=== PATIENT | male | born 1985 | race Caucasian/White ===

== ENCOUNTER 2017-10-15 18:06 | Emergency (ER) | payer SELFPAY ==
[~2017-10-15] VITALS: Ht 180.3 cm; Wt 68.0 kg
[~2017-10-15 18:06] MED LIST: BACT800T5 PO; CLIN150C14 PO; OXYC30TA PO; OXYC60TA8 PO
[2017-10-15 18:11] VITALS: BP 134/60; PULSE 101; RESP 16; TEMP 97.4; O2SAT 100
[2017-10-15] MEDS ORDERED: SOMA250T PO (18:40)
[2017-10-15] MEDS ORDERED: SYNT25TA PO (18:40)
--- NOTE | 2017-10-15 19:10 | PD ---
HPI Chief Complaint: Numbness/Tingling Time Seen by Provider: 18:49 Travel History International Travel<30 days: No Contact w/Intl Traveler<30days: No Traveled to known affect area: No History of Present Illness HPI The patient is a 32-year-old male who presents to the emergency department for left lower extremity numbness and weakness. The patient states his symptoms started 3 days prior to arrival. He complains of numbness of the left lower extremity states when he stands he feels "pins and needles". He does feel like his left lower extremity is weak upon standing but he is able to ambulate. He denies any trauma to the left lower extremity denies any known history of neuropathy or diabetes. He does have a family history of diabetes. He also notes a history of IVDA, last used IV methamphetamines one week prior to arrival. He denies any lower back pain, urinary incontinence, or pain of the left thigh. He denies any associated fever, chills, or sweats. Symptoms are mild to moderate without any known alleviating or exacerbating factors. 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) Reported Meds & Prescriptions Reported Meds & Active Scripts Active Reported Soma (Carisoprodol) 250 Mg Tab 250 Mg PO QID PRN Synthroid (Levothyroxine Sodium) 25 Mcg Tab 25 Mcg PO DAILY Review of Systems Except as stated in HPI: all other systems reviewed are Neg General / Constitutional: No: Fever Cardiovascular: No: Chest Pain or Discomfort Respiratory: No: Shortness of Breath Gastrointestinal: No: Nausea, Vomiting Genitourinary: No: Incontinence Musculoskeletal: Positive: Weakness, Pain Skin: No Rash Neurologic: Positive: Paresthesia, Sensory Disturbance Physical Exam Narrative GENERAL: Awake, alert, nontoxic-appearing 32-year-old male who appears his stated age and is in no acute respiratory distress. SKIN: Focused skin assessment warm/dry. HEAD: Atraumatic. Normocephalic. EYES: Pupils equal and round. No scleral icterus. No injection or drainage. ENT: No nasal bleeding or discharge. Mucous membranes pink and moist. NECK: Trachea midline. No JVD. CARDIOVASCULAR: Regular rate and rhythm. No murmur appreciated. RESPIRATORY: No accessory muscle use. Clear to auscultation. Breath sounds equal bilaterally. GASTROINTESTINAL: Abdomen soft, non-tender, nondistended. Back: No tenderness over the thoracic or lumbar vertebrae. No tenderness of the sacroiliac. No tenderness of the paravertebral muscles. MUSCULOSKELETAL: No obvious deformities. No clubbing. No cyanosis. No edema. Flexion of the hips is 5 out of 5. Extension of the right knee is 5 out of 5, the left is 4+/5. Plantar flexion on the left is 4+/5. Flexion left great toes 4+/5. Strength on the right at the knee, ankle, great toe is 5+/5. Positive dorsalis pedal pulses bilateral. NEUROLOGICAL: Awake and alert. No obvious cranial nerve deficits. Motor grossly within normal limits. Normal speech.Knee DTRs are 2+ and symmetric. Left ankle DTRs 1+, right is 2+. Sensation is diminished to soft touch over the posterior aspect of the left lower extremity over the calf as well as over the medial, lateral, dorsal aspect the left leg. PSYCHIATRIC: Appropriate mood and affect; insight and judgment normal. Data Data Last Documented VS Vital Signs Date Time Temp Pulse Resp B/P (MAP) Pulse Ox O2 Delivery O2 Flow Rate FiO2 10/15/17 20:20 68 119/60 (79) 10/15/17 18:11 97.4 16 100 Orders Orders Complete Blood Count With Diff (10/15/17 18:59) Basic Metabolic Panel (Bmp) (10/15/17 18:59) Westergren Sedimentation Rate (10/15/17 18:59) C-Reactive Protein (Crp) (10/15/17 18:59) Mri L Spine W&W/O Contrast (10/15/17 ) Gadodiamide Pf Inj (Omniscan Pf Inj) (10/15/17 20:55) Labs Laboratory Tests Test 10/15/17 19:23 White Blood Count 7.9 TH/MM3 Red Blood Count 4.40 MIL/MM3 Hemoglobin 13.0 GM/DL Hematocrit 39.5 % Mean Corpuscular Volume 89.9 FL Mean Corpuscular Hemoglobin 29.6 PG Mean Corpuscular Hemoglobin Concent 32.9 % Red Cell Distribution Width 12.4 % Platelet Count 212 TH/MM3 Mean Platelet Volume 8.9 FL Neutrophils (%) (Auto) 59.2 % Lymphocytes (%) (Auto) 22.1 % Monocytes (%) (Auto) 6.5 % Eosinophils (%) (Auto) 10.8 % Basophils (%) (Auto) 1.4 % Neutrophils # (Auto) 4.7 TH/MM3 Lymphocytes # (Auto) 1.7 TH/MM3 Monocytes # (Auto) 0.5 TH/MM3 Eosinophils # (Auto) 0.9 TH/MM3 Basophils # (Auto) 0.1 TH/MM3 CBC Comment DIFF FINAL Differential Comment Erythrocyte Sedimentation Rate 18 mm/hr Blood Urea Nitrogen 16 MG/DL Creatinine 0.71 MG/DL Random Glucose 80 MG/DL Calcium Level 8.8 MG/DL Sodium Level 144 MEQ/L Potassium Level 3.8 MEQ/L Chloride Level 107 MEQ/L Carbon Dioxide Level 30.8 MEQ/L Anion Gap 6 MEQ/L Estimat Glomerular Filtration Rate 130 ML/MIN [facility] Medical Decision Making Medical Screen Exam Complete: Yes Emergency Medical Condition: Yes Medical Record Reviewed: Yes Interpretation(s) MRI lumbar spine with and without contrast reveals a few rounded small nodular areas of enhancement in edema involving the left paraspinal musculature as detailed. This suggests areas of inflammation or infection. No abscess or fluid collection currently seen. Degenerative disc disease at L5-S1 without neural impingement or central canal narrowing. L5-S1 reveals a left paracentral disc protrusion observe with linear high T2 signal suggesting annular tear. This mildly narrowed the left lateral recess. Differential Diagnosis Differential diagnosis includes neuropathy, radiculopathy, epidural abscess, electrolyte abnormality, hyperkalemia, hypokalemia, hypercalcemia, hypocalcemia. Narrative Course IV was established, labs are drawn and sent, and the patient was placed on cardiac telemetry monitoring and continuous pulse oximetry monitoring. Electrolyte or sent to lab. MRI of the lumbar spine was ordered with and without contrast rule out epidural abscess with history of IVDA and left lower extremity weakness and numbness. MRI reveals a few small rounded nodular areas of enhancement in edema involving the left paraspinal musculature that suggest areas of inflammation or infection, no abscess or fluid collection currently seen. Degenerative disc disease at L5-S1 without neural impingement or central canal narrowing. A left paracentral disc protrusion observed with linear high T2 signal suggesting annular tear that mildly naris left lateral recess. The patient's white count was normal, he is afebrile, sedimentation rate is only 18. The patient may have inflammation or infection in the left paraspinal muscles, but complains of no back pain, he does have L5-S1 left paracentral disc protrusion suggestion annular tear, patient's radiculopathy may be secondary to this versus peripheral neuropathy. The patient will be placed on a short course of antibiotics, anti-inflammatories, and advised to continue the Soma he is already taking. He is advised to follow-up with his primary physician. Diagnosis Primary Impression: Peripheral neuropathy Qualified Codes: G58.8 - Other specified mononeuropathies Additional Impression: Lumbar herniated disc Patient Instructions: General Instructions Additional Instructions: Continue Soma as previously directed. Ibuprofen as directed. Bactrim as directed. Please provide the patient a copy of his MRI results and lab results at discharge. Follow-up with your primary physician. Return if symptoms worsen or progress. Med/Other Pt SpecificInfo: Prescription(s) given Scripts Sulfamethoxazole-Trimethoprim (Bactrim DS) 800-160 Mg Tab 1 TAB PO BID for Infection, #14 TAB 0 Refills Prov: Francisco Kumar MD 10/15/17 Ibuprofen (Ibuprofen) 600 Mg Tab 600 MG PO Q6H Y for Pain/Inflammation, #20 TAB 0 Refills Prov: Francisco Kumar MD 10/15/17 Disposition: 01 DISCHARGE HOME Condition: Stable Francisco Kumar MD Oct 15, 2017 19:10
[2017-10-15 19:53] LABS: CALCIUM 8.8 MG/DL (8.5-10.1)
[2017-10-15 19:54] LABS: BICARBONATE 30.8 MEQ/L (21.0-32.0)
[2017-10-15 19:57] LABS: CREATININE 0.71 MG/DL (0.60-1.30)
[2017-10-15 20:00] LABS: AUTOMATED NEUTROPHIL # 4.7 TH/MM3 (1.8-7.7); BASOPHIL # 0.1 TH/MM3 (0-0.2); BASOPHIL % 1.4 % (0.0-2.0); EOSINOPHIL # 0.9 TH/MM3 (0-0.4); EOSINOPHIL % 10.8 % (0.0-4.0); HEMATOCRIT 39.5 % (39.0-51.0); LYMPH % 22.1 % (9.0-44.0); LYMPHOCYTE # 1.7 TH/MM3 (1.0-4.8); MEAN CELL VOLUME 89.9 FL (80.0-100.0); MEAN CORPUSCULAR HEMOGLOBIN 29.6 PG (27.0-34.0); MEAN CORPUSCULAR HGB CONC 32.9 % (32.0-36.0); MEAN PLATELET VOLUME 8.9 FL (7.0-11.0); MONO % 6.5 % (0.0-8.0); MONOCYTE # 0.5 TH/MM3 (0-0.9); NEUT % 59.2 % (16.0-70.0); PLATELET COUNT 212 TH/MM3 (150-450); RED CELL DISTRIBUTION WIDTH 12.4 % (11.6-17.2); WHITE BLOOD COUNT 7.9 TH/MM3 (4.0-11.0)
[2017-10-15 20:20] VITALS: BP 119/60; PULSE 68
[2017-10-15] MEDS ORDERED: GADODIAMIDE PF 287 MG/ML 5 ML VIAL (for RAD MRI) IVCONTRAST ONE (20:55)
--- NOTE | 2017-10-15 21:28 | RADRPT ---
EXAM DATE/TIME: 10/15/2017 20:38 [facility] COMPARISON: No previous studies available for comparison. INDICATIONS : Radiculopathy. Left leg numbness/[id number]-skvntair abscess. CONTRAST: 13 cc Omniscan (gadodiamide) IV MEDICAL HISTORY : None. SURGICAL HISTORY : None. ENCOUNTER: Initial ACUITY: 2 day PAIN SCORE: 5/10 LOCATION: back. TECHNIQUE: Multiplanar multisequence MRI of the lumbar spine was performed with and without contrast. FINDINGS: The most caudal appearing lumbar vertebra is numbered as L5. VERTEBRAE: Homogeneous signal. Normal alignment. CONUS: Normal level and configuration. POST CONTRAST: Small rounded nodular areas of edema are seen involving the left paraspinous musculature. In particul ar the multifidus muscle and erector spinae muscle. These small areas of nodularity measure approxima te 1 cm in size and are located within the lower lumbar spine area. The same area show mild enhanceme nt following gadolinium. No discrete abscess seen. T12-L1: The thecal sac has a normal diameter. No evidence of disc bulge or protrusion. The neural foramina are patent bilaterally. L1-L2: The thecal sac has a normal diameter. No evidence of disc bulge or protrusion. The neural foramina are patent bilaterally. L2-L3: The thecal sac has a normal diameter. No evidence of disc bulge or protrusion. The neural foramina are patent bilaterally. L3-L4: The thecal sac has a normal diameter. No evidence of disc bulge or protrusion. The neural foramina are patent bilaterally. L4-L5: The thecal sac has a normal diameter. No evidence of disc bulge or protrusion. The neural foramina are patent bilaterally. L5-S1: A left paracentral disc protrusion observed with linear high T2 signal suggesting annular tear. This mildly narrows the left lateral recess. Right lateral recess and central canal are patent. Mild facet arthropathy changes. Neural foramina are patent bilaterally. CONCLUSION: 1. A few small rounded nodular areas of enhancement and edema involving the left paraspinal musculatu re as detailed above. This suggests areas of inflammation or infection. No abscess or fluid collectio n currently seen. 2. Degenerative disc disease at L5-S1 without neural impingement or central canal narrowing. Georgi Cristina Jr., MD on October 15, 2017 at 21:16 Board Certified Radiologist. This report was verified electronically.
[2017-10-15] MEDS ORDERED: BACT800T5 PO (21:34)
[2017-10-15] MEDS ORDERED: IBUP-232 PO (21:34)
[2017-10-15 21:39] LABS: C-REACTIVE PROTEIN 1.1 MG/DL (0.00-0.30)
== END 2017-10-15 21:53 | disposition home or self-care (01) ==
LOC: PHED 18:06
DX: G62.9 Polyneuropathy, unspecified (principal); M51.26 Other intervertebral disc displacement, lumbar region; G89.29 Other chronic pain; F17.210 Nicotine dependence, cigarettes, uncomplicated
CPT/HCPCS: 72158; 80048; 85025; 85652; 86140; 99284; A9579